=== PATIENT | female | born 1990 | race African-American/Black ===

== ENCOUNTER 2019-09-23 10:16 | Emergency (ER) | payer OTHER ==
[~2019-09-23] VITALS: Ht 162.6 cm; Wt 63.0 kg
[2019-09-23] MEDS ORDERED: BALANCED SALT IRRIG SOLN 15ML IR ONE (11:30)
[2019-09-23] MEDS ORDERED: FLUORESCEIN SODIUM 1MG/STRIP RIGHTEYE ONE (11:30)
[2019-09-23] MEDS ORDERED: TETRACAINE 0.5% OPHTH DROPS 4ML RIGHTEYE ONE (11:30)
[2019-09-23 13:05] VITALS: BP 118/69
== END 2019-09-23 13:10 | disposition home or self-care (01) ==
LOC: ER 10:16
DX: H10.9 Unspecified conjunctivitis (principal)
CPT/HCPCS: 99283